=== PATIENT | female | born 1950 | race Asian ===

== ENCOUNTER 2017-05-31 20:13 | Emergency (ER) | payer MEDICARE, OTHER ==
[~2017-05-31] VITALS: Ht 149.9 cm; Wt 63.5 kg
[~2017-05-31 20:13] MED LIST: LEVAQUIN750 MG ORAL
[2017-05-31 20:53] VITALS: BP 148/83
[2017-05-31] MEDS ORDERED: LEVAQUIN750 MG ORAL (21:21)
[2017-05-31] MEDS ORDERED: PROMETHAZINE-C118 M1 ORAL (21:21)
[2017-05-31 21:30] VITALS: BP 148/83
--- NOTE | 2017-05-31 22:16 | Emergency Room Report ---
History of Present Illness General Chief Complaint: Upper Respiratory Illness Source: Patient Present Illness HPI 66-year-old female presents ED for evaluation. Patient presents with cough, bodyaches x5 days. Afebrile in triage. Cough is productive with yellowish phlegm. Denies chest pain or shortness of breath. States her chest is sore from repeated coughing. Patient similar presentation approximately 1 years ago and came here. Patient was prescribed antibiotics and improved. States she received a flu vaccination this year. Denies sick contacts or recent travel. No other aggravating relieving factors. Denies any other associated symptoms Allergies: Coded Allergies: No Known Allergies (Unverified , 05/25/16) Patient History Past Medical History: HTN Past Surgical History: none Pertinent Family History: none Social History: Denies: smoking, alcohol use, drug use Now: No Immunizations: UTD Reviewed Nursing Documentation: PMH: Agreed, PSxH: Agreed Nursing Documentation-PM Past Medical History: No History, Except For Hx Cardiac Problems: No - Bronchitis Hx Hypertension: Yes Review of Systems All Other Systems: negative except mentioned in HPI Physical Exam Vital Signs Date Time Temp Pulse Resp B/P (MAP) Pulse Ox O2 Delivery O2 Flow Rate FiO2 05/31/17 20:25 98.2 86 17 166/90 96 Room Air Sp02 EP Interpretation: reviewed, normal General Appearance: no apparent distress, alert, GCS 15, non-toxic Head: normocephalic Eyes: bilateral eye normal inspection, bilateral eye PERRL ENT: hearing grossly normal, normal pharynx, no angioedema, normal voice, TMs + canals normal Neck: normal inspection Respiratory: chest non-tender, lungs clear, normal breath sounds, speaking full sentences Cardiovascular #1: regular rate, rhythm, no edema Gastrointestinal: normal bowel sounds, non tender, soft, non-distended, no guarding, no rebound Rectal: deferred Genitourinary: no CVA tenderness Musculoskeletal: normal inspection Neurologic: alert, oriented x3, responsive, motor strength/tone normal, sensory intact, speech normal Psychiatric: normal inspection Skin: normal inspection Lymphatic: normal inspection Medical Decision Making Diagnostic Impression: Primary Impression: Atypical pneumonia ER Course Hospital Course 66-year-old female presents to ED complaining of cough, bodyches Differential diagnoses include: URI, pharyngitis, otitis media, asthma Clinical course Patient placed on stretcher. After initial history, physical exam reveals an elderly female in no acute distress. Bilateral TM unremarkable. No pharyngeal erythema. No tonsillar exudates. No lymphadenopathy. lungs clear. abdomen soft. Chest x-ray shows some atelectasis in the lower lung larry. Questionable pneumonia. Similar to chest x-ray done on last visit. We will treat to prescribe antibiotics Diagnosis - atypical pneumonia Stable and discharged home with Rx Levaquin, Promethazine/codeine. Instructed to followup with PMD. Return to ED if symptoms recur or worsen Chest X-Ray Diagnostic Results Chest X-Ray Diagnostic Results : Chest X-Ray Ordered: Yes # of Views/Limited/Complete: 1 View Indication: Other - cough EP Interpretation: Yes Interpretation: no pneumothorax, no acute cardiopulmonary disease, other - atelectasis Impression: Other - atelectasis Electronically Signed by: Electronically signed by Dwayne Mullen MD Last Vital Signs Date Time Temp Pulse Resp B/P (MAP) Pulse Ox O2 Delivery O2 Flow Rate FiO2 05/31/17 21:30 98.6 91 14 148/83 98 Room Air Status: improved Disposition: HOME, SELF-CARE Condition: Stable Scripts Codeine/Promethazine Hcl* (PROMETHAZINE-CODEINE SYRUP*) 118 Ml Syrup 5 ML ORAL Q6H Y for For Cough, #118 ML 0 Refills Prov: DWAYNE MULLEN M.D. 05/31/17 Levofloxacin* (LEVAQUIN*) 750 Mg Tablet 750 MG ORAL DAILY for 7 Days, TAB Prov: DWAYNE MULLEN M.D. 05/31/17 Referrals: NOT CHOSEN CINDY/,REFERRING (PCP) Patient Instructions: Community-Acquired Pneumonia, Adult, [id number] DWAYNE MULLEN M.D. May 31, 2017 22:16
--- NOTE | 2017-06-03 15:47 | Diagnostic Imaging Report ---
Indication: Cough Technique: XRAY Chest 1v Comparison: 05/25/2016 Findings: Cardiac silhouette is prominent. There is no obvious consolidation or pleural effusion. Degenerative changes of the spine are noted. Atherosclerotic changes are seen. There is mild generalized interstitial prominence. Impression: Mild generalized interstitial prominence, acuity indeterminate, but grossly stable from the prior study. Clinical correlation recommended. Cardiomegaly.
== END 2017-05-31 21:30 | disposition home or self-care (01) ==
LOC: EMR 20:50
DX: J18.9 Pneumonia, unspecified organism (principal); I10 Essential (primary) hypertension
CPT/HCPCS: 71045; 99284